=== PATIENT | male | born 1995 | race African-American/Black ===

== ENCOUNTER 2019-09-23 13:18 | Emergency (ER) | payer MEDICAID ==
[~2019-09-23] VITALS: Ht 185.4 cm; Wt 75.0 kg
[2019-09-23 13:56] VITALS: BP 115/64
== END 2019-09-23 16:54 | disposition left against medical advice (07) ==
LOC: ER 13:18
DX: Z53.21 Procedure and treatment not carried out due to patient leaving prior to being seen by health care provider (principal)